=== PATIENT | female | born 2000 | race Caucasian/White ===

== ENCOUNTER 2021-02-24 00:01 | Emergency (ER) | payer OTHER ==
[2021-02-24 00:07] VITALS: BP 137/93; PULSE 107; TEMP 98; BMI 26.6
== END 2021-02-24 01:23 | disposition left against medical advice (07) ==
LOC: JER 00:01
DX: M79.602 Pain in left arm (principal); R51.9 Headache, unspecified
CPT/HCPCS: 99281-25